=== PATIENT | female | born 1965 | race Caucasian/White ===

== ENCOUNTER → 2018-01-22 | Outpatient (CLI) | payer BC ==
--- NOTE | 2018-01-22 09:07 | MR ---
EXAMINATION TYPE: MR shoulder LT wo con DATE OF EXAM: 01/22/2018 COMPARISON: Outside x-ray dated 01/20/2018 HISTORY: Left shoulder pain TECHNIQUE: Multiplanar, multisequence imaging of the left shoulder is performed without contrast. FINDINGS: Rotator Cuff: Edema within the rotator interval. There is no evidence of through thickness tear or re traction of the visualized rotator cuff tendons. Mild increased intrasubstance signal at insertion of the supraspinatus suggestive of tendinosis. Acromioclavicular Joint: Joint spaces maintained. No definite impingement. There is a type II acromio n. Glenohumeral Joint: Joint space preserved. No sizable joint effusion. There is poor definition of the inferior glenohumeral ligament. Labrum: The labrum appears grossly intact given limitation of non-arthrogram study. However, there is some truncation of the posterior superior labrum suspicious for tear. Biceps Tendon: The long head of biceps is in normal location within bicipital groove. There is small amount of fluid within the bicipital tendon sheath. Bone marrow signal: No focal abnormal marrow signal is appreciated. IMPRESSION: 1. There is edema within the rotator interval and subscapularis and supraspinatus tendons. No definit e rotator cuff tear. This can be associated with capsulitis and rotator interval tear with tendinosis of the long head of the biceps. 2. Mild supraspinatus tendinopathy at the insertion. 3. Poor visualization the inferior glenohumeral ligament. Correlate for ligamentous injury. 4. Findings suspicious for posterior superior labral tear.
== END | disposition home or self-care (01) ==
LOC: RADMRIMAIN 07:41
PROVIDERS: ATTEND Orthopaedic Surgery
DX: S46.112A Strain of muscle, fascia and tendon of long head of biceps, left arm, initial encounter (principal); R60.9 Edema, unspecified

== ENCOUNTER → 2018-03-16 | Outpatient (CLI) | payer BC ==
[2018-03-16 13:27] LABS: Basophils # (A) 0.1 k/uL (0-0.2); Basophils % (A) 1 %; Eosinophils # (A) 0.2 k/uL (0-0.7); Eosinophils % (A) 3 %; HCT 44.9 % (34.0-46.0); HGB 14.7 gm/dL (11.4-16.0); Lymphocytes # (A) 2.2 k/uL (1.0-4.8); Lymphocytes % (A) 32 %; MCH 28.2 pg (25.0-35.0); MCHC 32.8 g/dL (31.0-37.0); MCV 86.1 fL (80.0-100.0); Mean Platelet Volume 6.6; Monocytes # (A) 0.4 k/uL (0-1.0); Monocytes % (A) 5 %; Neutrophils # (A) 4.1 k/uL (1.3-7.7); Neutrophils % (A) 57 %; Platelet Count 211 k/uL (150-450); RBC 5.21 m/uL (3.80-5.40); WBC 7.1 k/uL (3.8-10.6)
== END | disposition home or self-care (01) ==
LOC: LABPAT 12:24
PROVIDERS: ATTEND Orthopaedic Surgery
DX: Z01.812 Encounter for preprocedural laboratory examination (principal); M75.42 Impingement syndrome of left shoulder
CPT/HCPCS: 36415; 80051; 85025

== ENCOUNTER 2021-06-10 15:34 | Emergency (ER) | payer BC ==
[2021-06-10] MEDS ORDERED: ACETAMINOPHEN TAB 500 MG TAB PO STA (17:37)
[2021-06-10] MEDS ORDERED: IBUPROFEN IV 600 MG in SODIUM CHLORIDE 0.9% 250 ML IV STA (17:37)
[2021-06-10] MEDS ORDERED: ONDANSETRON 4 MG/2 ML VIAL IVP STA (17:37)
[2021-06-10] MEDS ORDERED: SODIUM CHLORIDE 0.9% 500 ML 500 ML IV ONE (17:38)
[2021-06-10] MEDS ORDERED: SODIUM CHLORIDE 0.9% 1,000 ML IV ONE (17:38)
--- NOTE | 2021-06-10 17:49 | ED ---
General Adult HPI - General Chief complaint: Upper Respiratory Infection Stated complaint: COVID + Headache,Neck pain Time Seen by Provider: 06/10/21 16:20 Source: patient, RN notes reviewed, old records reviewed Mode of arrival: ambulatory Limitations: no limitations - History of Present Illness Initial comments: This is a 56-year-old female who presents to the emergency department complaining that she was been feeling under the weather with aches and pains as well as a mild headache since last Friday she tested with a home test for cocaine and it was positive. Patient states since then she's been not eating or drinking much and she thinks she is dehydrated she continues to have a headache if she has not taken any Motrin or Tylenol. Patient states she did vomit once yesterday and continues to be nauseous today. Patient states she did not lose her sense of taste or smell. Patient states she did have some diarrhea. Patient denies any chest pain patient denies shortness of breath or difficulty breathing patient denies abdominal pain patient denies any swelling to the legs or calf tenderness. - Related Data Home Medications Medication Instructions Recorded Confirmed Naproxen Sodium [Aleve] 220 mg PO DAILY PRN 03/10/18 Allergies Allergy/AdvReac Type Severity Reaction Status Date / Time No Known Allergies Allergy Verified 06/10/21 16:22 Review of Systems ROS Statement: Those systems with pertinent positive or pertinent negative responses have been documented in the HPI. ROS Other: All systems not noted in ROS Statement are negative. Past Medical History Past Medical History: Osteoarthritis (OA) History of Any Multi-Drug Resistant Organisms: None Reported Past Surgical History: Cholecystectomy Additional Past Surgical History / Comment(s): D & C Past Anesthesia/Blood Transfusion Reactions: No Reported Reaction Past Psychological History: No Psychological Hx Reported Smoking Status: Never smoker Past Alcohol Use History: Occasional Past Drug Use History: None Reported - Past Family History Father Family Medical History: Cancer General Exam - General Exam Comments Initial Comments: GENERAL: Patient is well-developed and well-nourished. Patient is nontoxic and well- hydrated and is in mild distress. ENT: Neck is soft and supple. No significant lymphadenopathy is noted. Oropharynx is clear. Dry mucous membranes. Neck has full range of motion without eliciting any pain. EYES: The sclera were anicteric and conjunctiva were pink and moist. Extraocular movements were intact and pupils were equal round and reactive to light. Eyelids were unremarkable. PULMONARY: Unlabored respirations. Good breath sounds bilaterally. No audible rales rhonchi or wheezing was noted. CARDIOVASCULAR: There is a regular rate and rhythm without any murmurs gallops or rubs. ABDOMEN: Soft and nontender with normal bowel sounds. SKIN: Skin is clear with no lesions or rashes and otherwise unremarkable. NEUROLOGIC: Patient is alert and oriented x3. Cranial nerves II through XII are grossly intact. Motor and sensory are also intact. Normal speech, volume and content. Symmetrical smile. MUSCULOSKELETAL: Normal extremities with adequate strength and full range of motion. LYMPHATICS: No significant lymphadenopathy is noted PSYCHIATRIC: Normal psychiatric evaluation. Limitations: no limitations Course Vital Signs 06/10/21 06/10/21 06/10/21 16:16 18:36 19:34 Temperature 101.8 F H 100.2 F H Pulse Rate 107 H 85 Respiratory 127 H 18 Rate Blood Pressure 127/81 113/60 O2 Sat by Pulse 94 L 90 L Oximetry Medical Decision Making - Medical Decision Making Chest x-ray shows bilateral infiltrates. Patient's COVID test was positive. Patient received fluids Tylenol and Motrin as well as Zofran in the emergency department. I went back in and reevaluated the patient she was feeling considerably better. I started the patient on monoclonal antibodies. Patient was oxygenating well emergency department. Patient will be discharged home. - Lab Data Result diagrams: 06/10/21 17:57 06/10/21 17:57 Lab Results 06/10/21 06/10/21 06/10/21 Range/Units 17:57 17:57 17:57 WBC 4.0 (3.8-10.6) k/uL RBC 5.78 H (3.80-5.40) m/uL Hgb 17.0 H (11.4-16.0) gm/dL Hct 49.0 H (34.0-46.0) % MCV 84.7 (80.0-100.0) fL MCH 29.4 (25.0-35.0) pg MCHC 34.7 (31.0-37.0) g/dL RDW 13.0 (11.5-15.5) % Plt Count 116 L (150-450) k/uL MPV 7.8 Neutrophils % 67 % Lymphocytes % 20 % Monocytes % 9 % Eosinophils % 0 % Basophils % 1 % Neutrophils # 2.6 (1.3-7.7) k/uL Lymphocytes # 0.8 L (1.0-4.8) k/uL Monocytes # 0.3 (0-1.0) k/uL Eosinophils # 0.0 (0-0.7) k/uL Basophils # 0.0 (0-0.2) k/uL Sodium 133 L (137-145) mmol/L Potassium 3.6 (3.5-5.1) mmol/L Chloride 95 L (98-107) mmol/L Carbon Dioxide 23 (22-30) mmol/L Anion Gap 15 mmol/L BUN 14 (7-17) mg/dL Creatinine 0.49 L (0.52-1.04) mg/dL Est GFR (CKD-EPI)AfAm >90 (>60 ml/min/1.73 sqM) Est GFR (CKD-EPI)NonAf >90 (>60 ml/min/1.73 sqM) Glucose 120 H (74-99) mg/dL Calcium 8.9 (8.4-10.2) mg/dL Total Bilirubin 0.7 (0.2-1.3) mg/dL AST 53 H (14-36) U/L ALT 66 H (4-34) U/L Alkaline Phosphatase 94 (38-126) U/L Total Protein 7.5 (6.3-8.2) g/dL Albumin 4.0 (3.5-5.0) g/dL Coronavirus (PCR) Detected A (Not Detectd) Disposition Clinical Impression: Pneumonia due to COVID-19 virus, Vomiting Disposition: HOME SELF-CARE Is patient prescribed a controlled substance at d/c from ED?: No Referrals: Se Daniel DO [Primary Care Provider] - 1-2 days Time of Disposition: 20:18
[2021-06-10 18:07] LABS: Basophils % (A) 1 %; Eosinophils % (A) 0 %; Lymphocytes # (A) 0.8 k/uL (1.0-4.8); Lymphocytes % (A) 20 %; MCH 29.4 pg (25.0-35.0); MCHC 34.7 g/dL (31.0-37.0); MCV 84.7 fL (80.0-100.0); Mean Platelet Volume 7.8; Monocytes # (A) 0.3 k/uL (0-1.0); Monocytes % (A) 9 %; Neutrophils # (A) 2.6 k/uL (1.3-7.7); Neutrophils % (A) 67 %; Platelet Count 116 k/uL (150-450); RBC 5.78 m/uL (3.80-5.40)
[2021-06-10 18:14] LABS: ALT 66 U/L (4-34); AST 53 U/L (14-36); African American GFR (CKD) >90 (>60 ml/min/1.73 sqM); Alkaline Phosphatase 94 U/L (38-126); Anion Gap 15 mmol/L; Blood Urea Nitrogen 14 mg/dL (7-17); Calcium 8.9 mg/dL (8.4-10.2); Carbon Dioxide 23 mmol/L (22-30); Chloride 95 mmol/L (98-107); Glucose 120 mg/dL (74-99); Non-African American GFR(CKD) >90 (>60 ml/min/1.73 sqM); Potassium 3.6 mmol/L (3.5-5.1); Sodium 133 mmol/L (137-145); Total Bilirubin 0.7 mg/dL (0.2-1.3); Total Protein 7.5 g/dL (6.3-8.2)
--- NOTE | 2021-06-10 18:25 | XR ---
EXAMINATION TYPE: XR chest 2V DATE OF EXAM: 06/10/2021 COMPARISON: NONE HISTORY: Headache. Difficulty breathing TECHNIQUE: 2 views FINDINGS: There is some mild pulmonary interstitial infiltrates. Heart size is normal. There is no he art failure. Costophrenic angles are clear. IMPRESSION: Mild bilateral pulmonary interstitial pneumonia.
[2021-06-10] MEDS ORDERED: SODIUM CHLORIDE 0.9% 50 ML IVPB ONE (19:00)
[2021-06-10] MEDS ORDERED: CASIRIVIMAB (REGN10933) (EUA) 600 MG, IMDEVIMAB (REGN10987) (EUA) 600 MG in SODIUM CHLO... IVPB ONE (19:15)
[2021-06-10 21:08] VITALS: BP 129/72; PULSE 79; RESP 17; TEMP 99
== END 2021-06-10 21:08 | disposition home or self-care (01) ==
LOC: EC 15:34
DX: U07.1 COVID-19 (principal); J12.82 Pneumonia due to coronavirus disease 2019; M19.90 Unspecified osteoarthritis, unspecified site; Z79.1 Long term (current) use of non-steroidal anti-inflammatories (NSAID)
CPT/HCPCS: 36415; 80053; 85025; 87635; 71046; 99284; 96365; 96375 ×2; 96361; J2405; J1741; Q0243